=== PATIENT | female | born 1985 | race Caucasian/White ===

== ENCOUNTER → 2020-07-08 11:12 | Outpatient (BNVA) | payer SELFPAY | PROVIDERS: Visit Provider Nurse Practitioner Family | DX: Z11.59 Encounter for screening for other viral diseases (principal) | CPT/HCPCS: 87635 ==

== ENCOUNTER 2020-07-12 12:46 | Emergency (ER) | payer BC, SELFPAY ==
[2020-07-12 12:50] VITALS: BP 137/89; PULSE 84; RESP 18; TEMP 36.8; O2SAT 97; BMI 45.4
--- NOTE | 2020-07-12 14:59 | ECG_ITS ---
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 Measurements Intervals [place] Rate: 71 P: 60 MN: 149 QRS: 58 QRSD: 90 T: 50 QT: 402 QTc: 438 Interpretive Statements SINUS RHYTHM No previous ECG available for comparison Electronically Signed On 07-13-2020 17:14:50 CDT by Kerry Childress M.D. [id number]
[2020-07-12 15:20] LABS: Basophils % 0.2 %; Eosinophils # 0.1 10^3/uL (0.0-0.8); Eosinophils % 1.5 %; Hematocrit 45.8 % (37.0-47.0); Hemoglobin 14.4 g/dL (11.5-15.3); Lymphocytes # 2.2 10^3/uL (0.8-4.8); Mean Corpuscular HGB Conc 31.4 g/dL (30.0-36.0); Mean Corpuscular Hemoglobin 29.3 pg (28.0-34.0); Mean Corpuscular Volume 93.3 fL (81-99); Mean Platelet Volume 9.4 fL (7.4-10.4); Monocytes # 0.5 10^3/uL (0.2-0.9); Monocytes % 8.3 %; Neutrophils # 3.05 10^3/uL (1.8-7.7); Neutrophils % 51.7 %; Nucleated Red Blood Cells % 0 %; Platelet Count 267 10^3/cmm (130-400); Red Blood Count 4.91 10^6/uL (4.1-5.3); Red Cell Distribution Width 13.2 % (12.1-15.1); White Blood Count 5.9 10^3/uL (4.0-10.0)
[2020-07-12 15:21] VITALS: BP 140/95; PULSE 76; RESP 18; O2SAT 97
[2020-07-12 15:36] LABS: D Dimer 0.34 ug/mIFEU (0-0.59)
--- NOTE | 2020-07-12 15:39 | XRR_ITS ---
PROCEDURE INFORMATION: Exam: XR Chest, 1 View Exam date and time: 07/12/2020 4:21 PM Age: 34 years old Clinical indication: Cough and shortness of breath; Patient HX: SOB. Cough. Covid+; Additional info: SOB, covid+ TECHNIQUE: Imaging protocol: XR of the chest Views: 1 view. COMPARISON: No relevant prior studies available. FINDINGS: Lungs: Unremarkable. No consolidation. Pleural space: Unremarkable. No pleural effusion. No pneumothorax. Heart/Mediastinum: Unremarkable. No cardiomegaly. Bones/joints: No acute abnormality. XR/XR chest 1V portable [id number] IMPRESSION: No acute findings.
[2020-07-12 15:42] LABS: Alanine Aminotransferase 48 U/L (0-33); Albumin Level 4.3 g/dL (3.5-5.2); Alkaline Phosphatase 76 IU/L (35-105); Anion Gap 14.2 (5-19); Aspartate Amino Transferase 35 U/L (0-32); Blood Urea Nitrogen 12 mg/dL (6-20); Calcium 9.3 mg/dL (8.5-10.5); Carbon Dioxide 25 mmol/L (22-29); Chloride 102 mmol/L (98-107); Globulin 3.5 g/dL (1.3-4.6); Glomerular Filtration Rate 95.2 mL/min (90-130); Glucose 96 mg/dL (65-115); Osmolality Calculated 280 mOsm/kg (285-295); Potassium 4.2 mmol/L (3.5-5.1); Sodium 137 mmol/L (136-145); Total Bilirubin 0.2 mg/dL (0.15-1.2); Total Protein 7.8 g/dL (6.6-8.7)
[2020-07-12 15:43] LABS: Troponin T (5th) Once 6 ng/L (0-10)
[2020-07-12 15:45] LABS: Creatine Phosphokinase 389 U/L (26-192)
[2020-07-12 15:46] LABS: Lactate (Lactic Acid level) 1.3 mmol/L (0.5-2.2)
[2020-07-12 16:00] VITALS: BP 120/69; PULSE 72; RESP 16; O2SAT 97
--- NOTE | 2020-07-12 16:02 | ED_ITS ---
HPI - General Adult General: Chief complaint: General Medical Stated complaint: COUGH, CHEST DISCOMFORT Time Seen by Provider: 07/12/20 13:10 Source: patient Mode of arrival: ambulatory Limitations: no limitations History of Present Illness: HPI narrative: Patient is a 34-year-old female who has been feeling unwell for the last 4 to 5 days. Today she started feeling unwell with nausea abdominal pain generalized body aches she got tested and was positive for COVID-19. She is not on any medication for these. About 2 days ago she started having increased difficulty breathing, wheezing, coughing. Because she is not getting any better she comes in here for evaluation Onset (ago): day(s) (2) Location: chest Radiation: non-radiation Severity: moderate Associated symptoms: Reports chest pain and dyspnea; Deny headache(s), nausea, rash, palpitations or vomiting Review of Systems General: Reports: 10 or more systems reviewed and unremarkable except in HPI and below Const: Denies: fever(s), chills or body aches Eyes: Denies: change in vision or blurry vision ENMT: Denies: throat pain, enlarged tonsils, odynophagia, hoarseness, mouth pain or swelling of lips/tongue Card: Reports: chest pain; Denies: palpitations, irregular heart rhythm, edema or swelling of feet/ankles Resp: Reports: dyspnea, non-productive cough and wheezing; Denies: productive cough GI: Denies: abdominal pain, nausea or vomiting : Denies: flank pain, difficulty voiding, dysuria, urinary frequency, urinary urgency or urinary hesitancy Musc: Denies: neck pain, back pain or extremity swelling Skin/Breast: Denies: rash, pruritus or erythema Neuro: Denies: headache(s), numbness in extremities or weakness in extremities Endo: Denies: polyuria, polydipsia or tired all the time Physical Exam Const: COMMON NORMALS: no acute distress, average body habitus, patient oriented x3, no limitations, healthy appearing, alert and well nourished HENMT: COMMON NORMALS: normocephalic, atraumatic and moist oral mucous membranes HEAD & SCALP: normocephalic and atraumatic Eye: COMMON NORMALS: Equal, round and reactive pupils present, EOMs intact bilaterally, conjunctivae normal and no scleral icterus CONJUNCTIVA: Yes conjunctivae normal PUPIL: Yes Equal, round and reactive pupils present Neck/C-Spine: COMMON NORMALS: full ROM, supple, no meningeal signs, no JVD and No carotid bruits Resp: COMMON NORMALS: normal respiratory effort EFFORT & INSPECTION: Yes able to speak in complete sentences, No decreased respiratory effort and No labored AUSCULTATION: wheezes scattered wheezes (few) Cardio: COMMON NORMALS: no JVD, regular rate, regular rhythm, S1 normal heart sound present, S2 normal heart sound present, No gallops present (Cardio), No clicks present (Cardio), No murmurs present (Cardio), No rub (Cardio) and Peripheral pulses 2+ throughout RATE: regular rate RHYTHM: regular rhythm HEART SOUNDS: S1 normal heart sound present and S2 normal heart sound present PERIPHERAL PULSES: Peripheral pulses 2+ throughout GI: COMMON NORMALS: Normal to inspection, nondistended, normoactive bowel sounds present, Soft to palpation, non-tender, No hepatosplenomegaly present, no masses and no bruits PALPATION: Yes Soft to palpation and Yes No hepatosplenomegaly present Extremity: COMMON NORMALS: normal to inspection, full ROM, capillary refill normal, no calf tenderness and no pedal edema Neuro: COMMON NORMALS: patient oriented x3 SENSORIUM/ORIENTATION: Yes alert MENINGEAL SIGNS: Yes no meningeal signs Skin: COMMON NORMALS: no rashes or lesions noted, no wounds, turgor normal, no jaundice, no petechiae and no mottling GENERAL SKIN EXAM: no rashes or lesions noted and turgor normal Course Reevaluation(s): Reevaluation #1: Discussed her lab and imaging findings with her. Her labs are remarkably good for somebody who has tested positive for COVID-19 and is symptomatic. Her vital signs have remained normal throughout including normal blood pressure, normal saturations with her oxygen saturation in the high 90s on room air. She has mild elevation of her liver enzymes. We will discharge her home with a prescription for albuterol to use as needed, otherwise I do not think she needs any other management. She voiced understanding and is in agreement with the plan Time: 17:28 Vital Signs: Vital signs: Vital Signs Temperature 98.3 F 07/12/20 12:50 Pulse Rate 68 07/12/20 18:30 Respiratory Rate 15 07/12/20 18:30 Blood Pressure 146/91 07/12/20 18:30 Pulse Oximetry 99 07/12/20 18:30 MDM - General Adult MDM Narrative: Medical decision making narrative: 34-year-old female patient was recently diagnosed with COVID-19. She presents because she felt she had worsening symptoms. However on evaluation the patient looked very good with normal vital signs including oxygen saturations in the upper 90s. She was in no distress, lungs were clear, labs were remarkably very good other than elevated CPK and mild elevation of her liver function tests. Chest x-ray was normal. Patient was reassured that she has known severe COVID and can be managed conservatively. She is discharged home with a prescription for an albuterol inhaler for times that she may need it. Medical Records: Attestation: I reviewed the patient's medical records. Lab Data: Attestation: I reviewed the patient's lab results. Labs: Lab Results 07/12/20 07/12/20 07/12/20 Range/Units 15:00 15:00 15:00 WBC 5.9 (4.0-10.0) 10^3/ uL RBC 4.91 (4.1-5.3) 10^6/u L Hgb 14.4 (11.5-15.3) g/dL Hct 45.8 (37.0-47.0) % MCV 93.3 (81-99) fL MCH 29.3 (28.0-34.0) pg MCHC 31.4 (30.0-36.0) g/dL RDW 13.2 (12.1-15.1) % Plt Count 267 (130-400) 10^3/c mm MPV 9.4 (7.4-10.4) fL Neut % (Auto) 51.7 % Lymph % (Auto) 38.0 % [place] % (Auto) 8.3 % Eos % (Auto) 1.5 % Baso % (Auto) 0.2 % Neut # (Auto) 3.05 (1.8-7.7) 10^3/u L Lymph # (Auto) 2.2 (0.8-4.8) 10^3/u L [place] # (Auto) 0.5 (0.2-0.9) 10^3/u L Eos # (Auto) 0.1 (0.0-0.8) 10^3/u L Baso # (Auto) 0.0 (0.0-0.1) 10^3/u L Nucleated RBC % (a uto) 0 % Nucleated RBCs # 0.0 /100WBC D-Dimer 0.34 (0-0.59) ug/mIFE U Sodium 137 (136-145) mmol/L Potassium 4.2 (3.5-5.1) mmol/L Chloride 102 (98-107) mmol/L Carbon Dioxide 25 (22-29) mmol/L Anion Gap 14.2 (5-19) BUN 12 (6-20) mg/dL Creatinine 0.7 (0.5-0.9) mg/dL GFR Calculation 95.2 (90-130) mL/min Glucose 96 (65-115) mg/dL Calculated Osmolal ity 280 L (285-295) mOsm/k g Lactate (0.5-2.2) mmol/L Calcium 9.3 (8.5-10.5) mg/dL Total Bilirubin 0.2 (0.15-1.2) mg/dL AST 35 H (0-32) U/L ALT 48 H (0-33) U/L Alkaline Phosphata se 76 (35-105) IU/L Creatine Kinase 389 H* (26-192) U/L Troponin T Gen 5 n g/L (0-10) ng/L C-Reactive Protein 2.1 (0.0-4.9) mg/L Total Protein 7.8 (6.6-8.7) g/dL Albumin 4.3 (3.5-5.2) g/dL Globulin 3.5 (1.3-4.6) g/dL Procalcitonin 0.05 (0-0.5) ng/mL 07/12/20 07/12/20 Range/Units 15:00 15:00 WBC (4.0-10.0) 10^3/ uL RBC (4.1-5.3) 10^6/u L Hgb (11.5-15.3) g/dL Hct (37.0-47.0) % MCV (81-99) fL MCH (28.0-34.0) pg MCHC (30.0-36.0) g/dL RDW (12.1-15.1) % Plt Count (130-400) 10^3/c mm MPV (7.4-10.4) fL Neut % (Auto) % Lymph % (Auto) % [place] % (Auto) % Eos % (Auto) % Baso % (Auto) % Neut # (Auto) (1.8-7.7) 10^3/u L Lymph # (Auto) (0.8-4.8) 10^3/u L [place] # (Auto) (0.2-0.9) 10^3/u L Eos # (Auto) (0.0-0.8) 10^3/u L Baso # (Auto) (0.0-0.1) 10^3/u L Nucleated RBC % (a uto) % Nucleated RBCs # /100WBC D-Dimer (0-0.59) ug/mIFE U Sodium (136-145) mmol/L Potassium (3.5-5.1) mmol/L Chloride (98-107) mmol/L Carbon Dioxide (22-29) mmol/L Anion Gap (5-19) BUN (6-20) mg/dL Creatinine (0.5-0.9) mg/dL GFR Calculation (90-130) mL/min Glucose (65-115) mg/dL Calculated Osmolal ity (285-295) mOsm/k g Lactate 1.3 (0.5-2.2) mmol/L Calcium (8.5-10.5) mg/dL Total Bilirubin (0.15-1.2) mg/dL AST (0-32) U/L ALT (0-33) U/L Alkaline Phosphata se (35-105) IU/L Creatine Kinase (26-192) U/L Troponin T Gen 5 n g/L 6 (0-10) ng/L C-Reactive Protein (0.0-4.9) mg/L Total Protein (6.6-8.7) g/dL Albumin (3.5-5.2) g/dL Globulin (1.3-4.6) g/dL Procalcitonin (0-0.5) ng/mL Imaging Data^: CXR: Radiologist's impression: [address] [address] XRay Report Signed Patient: Yohana Monroe #: [id number] : 1985Acct#:[id number] Age/Sex: 34 / FADM Date: 07/12/20 [place]Bed: Attending Dr: Ordering Provider/Ordering MD: Jeanna Cespedes MD, [facility] [place] Date of Service: 07/12/20 Procedure(s): XR chest 1V portable [id number] Accession Number(s): [id number] Report Number: [id number] PROCEDURE INFORMATION: Exam: XR Chest, 1 View Exam date and time: 07/12/2020 4:21 PM Age: 34 years old Clinical indication: Cough and shortness of breath; Patient HX: SOB. Cough. Covid+; Additional info: SOB, covid+ TECHNIQUE: Imaging protocol: XR of the chest Views: 1 view. COMPARISON: No relevant prior studies available. FINDINGS: Lungs: Unremarkable. No consolidation. Pleural space: Unremarkable. No pleural effusion. No pneumothorax. Heart/Mediastinum: Unremarkable. No cardiomegaly. Bones/joints: No acute abnormality. XR/XR chest 1V portable [id number] IMPRESSION: No acute findings. Dictated By:Doretha Hilton Signed By:Sharonda Hilton Date/Time:07/12/208 DD/ 1647 EKG Data^: EKG 1: Attestation: I personally reviewed and interpreted this EKG as follows: EKG interpretation date: 07/12/20 EKG interpretation time: 15:17 Prior EKG tracings: not available for review Interpretation: Normal sinus rhythm. Heart rate 71 bpm. Normal axis. No ST changes. No STEMI Computer generated interpretation: Chest X-Ray 07/12/20 15:39 IMPRESSION: No acute findings. Discharge Plan Discharge Patient Disposition: Home Clinical Impression: COVID-19, Rhabdomyolysis due to COVID-19 Condition: Stable Prescriptions: New albuterol sulfate 90 mcg/actuation HFA aerosol inhaler 4 inh INHALATION Q4H PRN (Reason: shortness of breath or wheezing) Qty: 8.5 RF: 0 Continued Tylenol Extra Strength 500 mg Tablet 1,000 mg PO PRN RF: 0 elderberry fruit-honey 0.7-3 gram/7.5 mL Liquid 5 ml PO PRN RF: 0 Vitamin C 2 tab PO PRN RF: 0 Discharge Orders: Discharge Order (Routine); Ordered 07/12/20 Ordered By: Jeanna Cespedes Discharge Diet: Usual diet Discharge Activity: Increase activity as tolerated Patient Instructions: Rhabdomyolysis (ED), Severe Acute Respiratory Syndrome (SARS) (ED) Activity Restrictions/Additional Instructions: Return for any new or worsening symptoms, especially worsening shortness of breath, fever, nausea or vomiting. Obtain an [id number] pulse oximeter and use it to check your oxygen levels. If your oxygen levels falls below 90 then please come to the emergency department for reevaluation. Follow-up with your primary care provider within 1 week. Use inhaler as needed for cough or shortness of breath. Discharge Date/Time: 07/12/20 19:02 Coding Level of Care Code ED Supervisor Braiding for Nelly Holley Exam Comprehensive
[2020-07-12 16:07] LABS: Procalcitonin 0.05 ng/mL (0-0.5)
[2020-07-12 16:17] LABS: C Reactive Protein 2.1 mg/L (0.0-4.9)
[2020-07-12] MEDS: sodium chloride 0.9% 2,000 ML 999 ML IV (16:44)
[2020-07-12 17:00] VITALS: BP 140/91; PULSE 72; RESP 19; O2SAT 97
[2020-07-12 18:30] VITALS: BP 146/91; PULSE 68; RESP 15; O2SAT 99
== END 2020-07-12 19:02 | disposition home or self-care (01) ==
PROVIDERS: Emergency Provider Family Medicine
DX: U07.1 COVID-19 (principal); M62.82 Rhabdomyolysis
CPT/HCPCS: 12345; 71045; 80053; 82550; 83605; 84145; 84484; 85025; 85378; 86140; 93005; 96360; 96361; 99283; 99284; J7030

== ENCOUNTER → 2020-07-27 15:31 | Outpatient (BNVA) | payer BC, SELFPAY | PROVIDERS: Visit Provider Nurse Practitioner Family | DX: F90.9 Attention-deficit hyperactivity disorder, unspecified type (principal); J06.9 Acute upper respiratory infection, unspecified; R53.83 Other fatigue; E11.9 Type 2 diabetes mellitus without complications; E66.01 Morbid (severe) obesity due to excess calories; Z68.41 Body mass index [BMI] 40.0-44.9, adult | CPT/HCPCS: 80053; 83036; 85025 ==

== ENCOUNTER → 2020-08-26 16:33 | Outpatient (BNVA) | payer BC, SELFPAY | PROVIDERS: Visit Provider Nurse Practitioner Family | DX: E66.01 Morbid (severe) obesity due to excess calories (principal); Z68.41 Body mass index [BMI] 40.0-44.9, adult; F32.9 Major depressive disorder, single episode, unspecified; F41.9 Anxiety disorder, unspecified | CPT/HCPCS: 84443 ==

== ENCOUNTER → 2020-09-14 08:36 | Outpatient (BNVA) | payer BC, SELFPAY | PROVIDERS: Visit Provider Psychiatry & Neurology Psychiatry | DX: F43.12 Post-traumatic stress disorder, chronic (principal); F41.1 Generalized anxiety disorder; F17.200 Nicotine dependence, unspecified, uncomplicated | CPT/HCPCS: 99204 ==

== ENCOUNTER → 2020-10-19 09:27 | Outpatient (BNVA) | payer BC, SELFPAY | PROVIDERS: Visit Provider Psychiatry & Neurology Psychiatry | DX: F41.1 Generalized anxiety disorder (principal); F43.12 Post-traumatic stress disorder, chronic; F17.200 Nicotine dependence, unspecified, uncomplicated | CPT/HCPCS: 99213 ==

== ENCOUNTER → 2020-12-03 08:33 | Outpatient (BNVA) | payer BC, SELFPAY | PROVIDERS: Visit Provider Psychiatry & Neurology Psychiatry | DX: F43.12 Post-traumatic stress disorder, chronic (principal); F41.1 Generalized anxiety disorder; F17.200 Nicotine dependence, unspecified, uncomplicated | CPT/HCPCS: 99214 ==

== ENCOUNTER → 2021-01-20 09:00 | Outpatient (BNVA) | payer OTHER, SELFPAY | PROVIDERS: PCP Internal Medicine; Visit Provider Nurse Practitioner Women's Health | DX: Z01.419 Encounter for gynecological examination (general) (routine) without abnormal findings (principal); Z11.3 Encounter for screening for infections with a predominantly sexual mode of transmission | CPT/HCPCS: 87491; 87591; 87661; 88175 ==

== ENCOUNTER → 2021-02-22 14:42 | Outpatient (BNVA) | payer OTHER, SELFPAY | PROVIDERS: PCP Internal Medicine; Visit Provider Psychiatry & Neurology Psychiatry | DX: F43.12 Post-traumatic stress disorder, chronic (principal); F41.1 Generalized anxiety disorder; F17.200 Nicotine dependence, unspecified, uncomplicated | CPT/HCPCS: 99214 ==

== ENCOUNTER → 2021-03-02 08:41 | Outpatient (BNVA) | payer OTHER, SELFPAY | PROVIDERS: PCP Internal Medicine; Visit Provider Social Worker | DX: F43.12 Post-traumatic stress disorder, chronic (principal); F41.1 Generalized anxiety disorder; F90.9 Attention-deficit hyperactivity disorder, unspecified type | CPT/HCPCS: 90834; 81025 ==

== ENCOUNTER → 2021-05-24 11:06 | Outpatient (BNVA) | payer OTHER, SELFPAY | PROVIDERS: PCP Internal Medicine; Visit Provider Internal Medicine | DX: J06.9 Acute upper respiratory infection, unspecified (principal); Z20.822 Contact with and (suspected) exposure to COVID-19 | CPT/HCPCS: 87635 ==

== ENCOUNTER → 2022-04-06 10:01 | Outpatient (BNVA) | payer OTHER, SELFPAY | PROVIDERS: PCP Internal Medicine; Visit Provider Nurse Practitioner Family | DX: E66.9 Obesity, unspecified (principal); R53.83 Other fatigue; Z13.1 Encounter for screening for diabetes mellitus; Z13.6 Encounter for screening for cardiovascular disorders; M19.90 Unspecified osteoarthritis, unspecified site; E66.01 Morbid (severe) obesity due to excess calories; Z68.41 Body mass index [BMI] 40.0-44.9, adult | CPT/HCPCS: 80053; 80061; 82306; 82607; 82746; 84439; 84443; 85025 ==